=== PATIENT | male | born 1985 | race Caucasian/White ===

== ENCOUNTER → 2018-10-23 07:52 | Outpatient (CLI) | payer OTHER, SELFPAY ==
--- OUTSIDE RECORDS SUMMARY | 2019-01-24 12:51 | XMS RPT_ITS ---
:1985 Author Organization OHIP Care Team Providers Name Role Phone JUSTIN LAROSE Attending Unavailable JUSTIN LAROSE Referring Unavailable Den Stewart [facility] Unavailable PROBLEMS PROBLEMS DATE TYPE CONDITION / CODE ATTENDING STATUS SOURCE 11/22/2018 Unknown Z52.3 - Bone JUSTIN LAROSE Active [place] marrow donor / Community Z52.3(ICD-10) Hospital Repository PROCEDURES PROCEDURES No Procedure Records FoundRESULTS RESULTS MISCELLANEOUS LAB Collected: 10/23/2018 Status: F Source: [facility] PROCEDURE 8:06 AM [facility] [place] REPOSITORY Order Comment: Test(s) Ordered: SEND OUT TEST TYPE CODE TESTS RESULT OUT OF RANGE REFERENCE UNITS LAB L801.1541 Normal [facility] Result Comment: Sent directly to testing facility per ordering physician. @ 10/31/18 1326 MYOUNG Performed By: #### L801.1541 #### [facility] [address] [place], [address] ALLERGIES ALLERGIES No Allergies Records FoundENCOUNTERS ENCOUNTERS ADMIT/DISCHARGE ACCOUNT ADMITTING ENCOUNTER LOCATION SOURCE NUMBER CLASS 10/23/2018 [id number] Ambulatory [facility] ing:LAB.FUTUR Repository E PAYERS PAYERS ENCOUNTER GUARANTOR PAYER SUBSCRIBER SOURCE 10/23/2018 DIXIE Porras [id number] Primary DIXIE CALLEJAS Insurance:[place] [place] [place] [id number] [facility] [id number]: PROGRAMPolicy Number: Repository [id number] (HP) Date:[id number] TS PAYABLE/[id number] [place] [id number]: 10/23/2018 Secondary NOT GIVENUNK Carla Insurance:[facility]LF PAY [facility] Effective Repository Date:2018-10-19
== END ==
PROVIDERS: Family Provider Family Medicine; PCP Family Medicine
DX: Z52.3 Bone marrow donor (principal)

== ENCOUNTER → 2018-12-20 08:03 | Outpatient (CLI) | payer OTHER, SELFPAY | PROVIDERS: Family Provider Family Medicine; PCP Family Medicine | DX: Z52.3 Bone marrow donor (principal) ==